=== PATIENT | male | born 1985 | race Caucasian/White ===

== ENCOUNTER 2019-10-09 23:43 | Emergency (ER) | payer OTHER ==
[2019-10-09 23:50] VITALS: BP 125/82; PULSE 59; TEMP 97.8; BMI 29.7
[2019-10-10] MEDS ORDERED: IBUPROFEN 600 MG TABLET (FP) PO ONE ×2 (02:50→02:55)
[2019-10-10] MEDS ORDERED: ACETAMINOPHEN 500 MG TABLET (FP) PO ONE (02:50)
[2019-10-10] MEDS ORDERED: ACETAMINOPHEN 325 MG TABLET (FP) ONE (02:55)
--- NOTE | 2019-10-10 03:06 | PDOC ---
History of Present Illness - General Chief Complaint: Respiratory Stated Complaint: COLD SYMPTOMS Time Seen by Provider: 10/10/19 01:51 - History of Present Illness Initial Comments: 10/10/19 03:05 HPI: 34 y/o M with no pmh presenting with 2-3 days of dry cough and worsening SOB. Symptoms initially began with URI like syndrome of rhinorrhea, sore throat, congestion, FERRER, however, have been progressing. Now with severe cough and pleuritic chest pain. Also reprots SOB at rest which he hasnt had until today. 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 He denies fever, travel, abd pain, n/v, travel. He tried pseudophed with no improvement in symptoms. Exertion exacerbates cough and SOB and he complains of generalized weakness. PMHx: as noted above ROS: as noted SHx: Denies tobacco use; no alcohol use; no rec drugs Allergies: NKDA ROS: GENERAL/CONSTITUTIONAL: +chills, generalized weakness. HEAD, EYES, EARS, NOSE AND THROAT: No change in vision. No ear pain or discharge. +sore throat. CARDIOVASCULAR: +chest pain & shortness of breath RESPIRATORY: +cough; no wheezing, or hemoptysis. GASTROINTESTINAL: No nausea, vomiting, diarrhea or constipation. GENITOURINARY: No dysuria, frequency, or change in urination. MUSCULOSKELETAL: No joint or muscle swelling or pain. No neck or back pain. SKIN: No rash NEUROLOGIC: No headache, vertigo, loss of consciousness, or change in strength/ sensation. ENDOCRINE: No increased thirst. No abnormal weight change HEMATOLOGIC/LYMPHATIC: No anemia, easy bleeding, or history of blood clots. ALLERGIC/IMMUNOLOGIC: No hives or skin allergy. PE: GENERAL: Awake, alert, and fully oriented, no acute distress HEAD: No signs of trauma, normocephalic, atraumatic EYES: EOMI, sclera anicteric, conjunctiva clear ENT: Auricles normal inspection, hearing grossly normal, nares patent, oropharynx with posterior erythema. Moist mucosa NECK: Normal ROM, no lymphadenopathy LUNGS: No increased work of breathing, symmetrical chest rise, clear to auscultation bilaterally, no wheezes, crackles or rhonchi HEART: Regular rate and rhythm, normal S1 and S2, no murmur, peripheral pulses 2 + and equal bilaterally. ABDOMEN: Soft, nondistended, nontender, normoactive bowel sounds. No guarding, no rebound. No masses. No CVAT MUSCULOSKELETAL: Normal inspection, FROM NEUROLOGICAL: Cranial nerves II through XII grossly intact. Normal speech, normal gait, no focal sensorimotor deficits SKIN: Warm, Dry, normal turgor, no rashes or lesions noted Past History - Past Medical History Allergies/Adverse Reactions: Allergies Allergy/AdvReac Type Severity Reaction Status Date / Time No Known Allergies Allergy Verified 10/09/19 23:50 Home Medications: Ambulatory Orders Amoxicillin/Potassium Clav [Augmentin 875-125 Tablet] 1 each PO BID #20 tablet 10/10/19 COPD: No - Psycho Social/Smoking Cessation Hx Smoking History: Never smoked *Physical Exam - Vital Signs Last Vital Signs Temp Pulse Resp BP Pulse Ox 97.8 F 59 L 18 125/82 99 10/09/19 23:47 10/09/19 23:47 10/09/19 23:47 10/09/19 23:47 10/09/19 23:47 Medical Decision Making - Medical Decision Making 10/10/19 03:16 34 y/o M with no pmh presenting with 2-3 days of dry cough and worsening SOB associated with generalized weakness, sore throat, congestion. VSS, AF. PE with psoterior oropharynx erythema. DDx includes strep, flu, virus, pna -rapid strep, rapid flu, cxr -motrin, tylenol -reassess 10/10/19 03:27 strep positive will give first dose of augmentin and DC with script for 10 days discussed with patient resutls and answered all questions no additional concerns at this time Discharge - Discharge Information Problems reviewed: Yes Clinical Impression/Diagnosis: Strep pharyngitis Condition: Improved Disposition: HOME - Additional Discharge Information Prescriptions: Amoxicillin/Potassium Clav [Augmentin 875-125 Tablet] 1 each PO BID #20 tablet - Follow up/Referral Referrals: Oleg Ochoa [Primary Care Provider] - - Patient Discharge Instructions Patient Printed Discharge Instructions: DI for Strep Throat Additional Instructions: Additional Instructions: Please return to the emergency department with any new or worsening symptoms or concerns. Please follow up with your primary care physician within 72 hours. Please maintain contact precautions for 48 hours while you remain infectious Please take augmentin twice a day for 10 days; a script has been sent to your pharmacy Please take tylenol 650mg every 6 hours and motrin 600mg every hours for pain control Instrucciones adicionales: Regrese al departamento de emergencias con cualquier sntoma o inquietud nueva o que empeore. Sotero un seguimiento con hernandez mdico de atencin primaria dentro de las 72 horas. Mantenga las precauciones de contacto rama 48 horas mientras permanezca infeccioso. [place] augmentin dos veces al da rama 10 fishman; se envi un marjan a hernadnez farmacia [place] tylenol 650 mg cada 6 horas y motrin 600 mg cada hora para controlar el dolor. Print Language: WELSH - Post Discharge Activity
[2019-10-10] MEDS ORDERED: AMOX TR/POT CLAV 875MG/125MG TABLETS (FP) PO ONE ×2 (03:23)
--- NOTE | 2019-10-10 03:26 | PDOC ---
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 Coughing, body aches, and sore throat. No other complaints - Physicial Exam PE: 10/10/19 03:24 Pt has pharyngeal erythema Heart and lungs clear. Abd soft NT ND + BS No flank pain - Medical Decision Making 10/10/19 03:25 Pt will be treated with augmentin 875mg BID x 10 days for strep throat. He can follow with PMD
[2019-10-10] MEDS ORDERED: AMOX TR/POT CLAV 875MG/125MG TABLETS (FP) ONE (03:30)
== END 2019-10-10 03:33 | disposition home or self-care (01) ==
LOC: JER 23:43
DX: J02.0 Streptococcal pharyngitis (principal); B95.0 Streptococcus, group A, as the cause of diseases classified elsewhere
CPT/HCPCS: 71046-TC-FY; 87804; 87880; 99282-25